=== PATIENT | female | born 1965 | race Caucasian/White ===

== ENCOUNTER 2020-02-22 10:35 | Emergency (ER) | payer OTHER ==
[~2020-02-22] VITALS: Ht 157.5 cm; Wt 79.2 kg
--- NOTE | 2020-02-22 10:41 | NUR ---
THIS IS A 54 YEAR OLD FEMALE WHO C/O OF LOWER BACK PAIN AFTER SLIPPING AND FALLING IN SHOWER. PT HAS TRAVELED IN [facility] AND [place] 30 DAYS AGO. HAS SELF QUARANTINE, DENIES ANY FLU LIKE S/S. PT LOWER BACK PAIN IS 8/10. PT RECEIVED 100MCG FENTANYL AND 4 ZOFRAN. REPORT TO HOLA SHEIKH
[2020-02-22] MEDS ORDERED: ONDANSETRON ODT 4 MG PO ONE (11:00)
[2020-02-22] MEDS ORDERED: ONDANSETRON 2MG/ML, 2ML ONE (11:18)
[2020-02-22] MEDS ORDERED: MORPHINE SULFATE 4 MG/ML, 1ML ONE (11:19)
[2020-02-22] MEDS ORDERED: MORPHINE SULFATE 4 MG/ML, 1ML IVPush PRN (11:30)
[2020-02-22] MEDS ORDERED: ONDANSETRON 2MG/ML, 2ML IVPush ONE (11:30)
--- NOTE | 2020-02-22 13:06 | NUR ---
PT TWIN SISTER JOSY - [phone]
[2020-02-22] MEDS ORDERED: HYDROmorphone 1 MG/ML, 1ML INJ ONE ×2 (14:14→17:09)
[2020-02-22] MEDS: HYDROmorphone 2 MG/ML, 1ML IVPush PRN ×2 (14:15→17:15)
--- NOTE | 2020-02-22 14:48 | NUR ---
PT UPDATED ON PLAN OF CARE, INCLUDING IMPENDING BRACE PLACEMENT, XRAY CONFIRMATION, AND APPROXIMATE TIME OF DISCHARGE. VERBALIZES UNDERSTANDING, DENIES ANY FURTHER NEEDS OR CONCERNS AT THIS TIME. CALL LIGHT IN REACH.
--- NOTE | 2020-02-22 16:46 | NUR ---
pt back from repeat xray
[2020-02-22 17:51] VITALS: BP 129/87
== END 2020-02-22 17:52 | disposition home or self-care (01) ==
LOC: ED 10:53
DX: S39.92XA Unspecified injury of lower back, initial encounter (principal); W18.2XXA Fall in (into) shower or empty bathtub, initial encounter; Y93.89 Activity, other specified; Y92.89 Other specified places as the place of occurrence of the external cause; Y99.8 Other external cause status
CPT/HCPCS: 72110; 72131; 72220; 96374; 96375; 96376; 99284; J1170; J2270; J2405